=== PATIENT | female | born 1995 | race African-American/Black ===

== ENCOUNTER 2021-12-01 13:11 | Emergency (ER) | payer MEDICAID ==
[~2021-12-01] VITALS: Ht 162.6 cm; Wt 54.4 kg
[2021-12-01] MEDS ORDERED: LORAZEPAM 2 MG/1 ML VIAL IV ONE (13:30)
[2021-12-01] MEDS ORDERED: LACOSAMIDE 200 MG in IV NORMAL SALINE 100 ML IV ONE (13:30)
[2021-12-01 13:52] LABS: HEMATOCRIT 34.6 % (31.2-41.9); MEAN CORPUSCULAR HEMOGLOBIN 28.7 uug (24.7-32.8); MEAN CORPUSCULAR VOLUME 85.1 fL (75.5-95.3); PLATELET COUNT (AUTO) 270 K/uL (179-408)
[2021-12-01] MEDS ORDERED: LORAZEPAM 2 MG/1 ML VIAL ONE (13:52)
[2021-12-01 14:04] LABS: BILIRUBIN,DIRECT 0.1 mg/dL (0.0-0.2); BILIRUBIN,TOTAL 0.2 mg/dL (0.2-1.0); CREATININE 0.8 mg/dL (0.6-1.3); POTASSIUM 3.6 mmol/L (3.5-5.1); TOTAL PROTEIN, SERUM 7.3 g/dL (6.4-8.2)
[2021-12-01] MEDS ORDERED: LACO200T2 PO (16:20)
[2021-12-01] MEDS ORDERED: NAPR-1164 PO (16:22)
--- NOTE | 2021-12-01 16:35 | NUR ---
IV removed. Catheter intact and site benign. Pressure and 4x4 gauze applied to site. No bleeding noted.
--- NOTE | 2021-12-01 16:38 | NUR ---
Patient discharged to home in stable condition. Written and verbal after care instructions given. Patient verbalizes understanding of instructions. Stressed follow up or return to ER for worsening s/s.
[2021-12-01 16:39] VITALS: BP 115/74
== END 2021-12-01 16:40 | disposition home or self-care (01) ==
LOC: ER 13:11
DX: G40.909 Epilepsy, unspecified, not intractable, without status epilepticus (principal); N83.201 Unspecified ovarian cyst, right side
CPT/HCPCS: 36415; 72125; 73030 ×2; 74176; 80048; 80076; 84702; 85025; 96365; 96375; 99285; J2060; A4663; J3490